=== PATIENT | female | born 1985 | race Hispanic/Latino ===

== ENCOUNTER 2021-01-02 11:30 | Emergency (ER) | payer MEDICAID ==
--- NOTE | 2021-01-02 12:25 | Emergency Department Report ---
ED General Adult HPI - General Chief complaint: Head Injury Stated complaint: CHEMO TX/PAIN/FELL IN BATHROOM Time Seen by Provider: 01/02/21 12:12 Source: patient Mode of arrival: Ambulatory Limitations: No Limitations - History of Present Illness Initial comments: Patient is a 35-year-old female brought in by her family members with complaints of fatigue and generalized weakness since yesterday. The relative states that she just wanted to sleep all day yesterday and she was difficult to awake at times. The patient's relative states that she just started a new chemotherapy regimen on 12/30/2020. She has a history of metastatic breast cancer and sees Dr. Savage in [facility]. She states it has spread to her liver and brain. The relative states that today she was in the shower and fell and hit her head. She states since then she has been more fatigued. The patient states that she has had a couple episodes of vomiting. Patient states that she also has abdominal pain and abdominal swelling and pain with taking a deep breath. She d enies any shortness of breath, fever, cough, chest pain. No allergies to medications. she has a hx of anemia requiring blood transfusions. - Related Data Previous Rx's Medication Instructions Recorded Last Taken Type LORazepam [Ativan] 1 mg PO QHS #14 tab 01/02/21 Unknown Rx Morphine [Morphine ORAL SOLN 10 10 mg PO Q4HR #30 ml 01/02/21 Unknown Rx MG/5 ML] Allergies Allergy/AdvReac Type Severity Reaction Status Date / Time No Known Allergies Allergy Unverified 01/02/21 12:05 ED Review of Systems ROS: Stated complaint: CHEMO TX/PAIN/FELL IN BATHROOM Other details as noted in HPI Comment: All other systems reviewed and negative ED Past Medical Hx - Past Medical History Previous Medical History?: No - Surgical History Past Surgical History?: No - Medications Home Medications: Home Medications Medication Instructions Recorded Confirmed Last Taken Type LORazepam [Ativan] 1 mg PO QHS #14 tab 01/02/21 Unknown Rx Morphine [Morphine ORAL SOLN 10 10 mg PO Q4HR #30 ml 01/02/21 Unknown Rx MG/5 ML] ED Physical Exam - General Limitations: No Limitations General appearance: other (appears fatigued but is able to awaken and answer questions ) - Head Head exam: Present: atraumatic, normocephalic - Eye Eye exam: Present: PERRL, EOMI - ENT ENT exam: Present: mucous membranes moist - Neck Neck exam: Present: normal inspection, full ROM. Absent: tenderness, meningismus - Respiratory Respiratory exam: Present: normal lung sounds bilaterally, other (right chest wall port appears clean, dry, intact without signs of infection). Absent: respiratory distress, wheezes, rales, rhonchi, stridor, chest wall tenderness, accessory muscle use, decreased breath sounds, prolonged expiratory - Cardiovascular Cardiovascular Exam: Present: normal rhythm, tachycardia - GI/Abdominal GI/Abdominal exam: Present: distended (mildly), tenderness (generalized), normal bowel sounds. Absent: guarding, rebound, rigid - Neurological Exam Neurological exam: Present: alert, oriented X3 - Psychiatric Psychiatric exam: Present: normal affect, normal mood - Skin Skin exam: Present: warm, dry, intact ED Course Vital Signs 01/02/21 01/02/21 01/02/21 12:05 12:51 14:26 Temperature 97.6 F Pulse Rate 110 H 105 H Respiratory 16 16 18 Rate Blood Pressure 121/90 Blood Pressure 120/89 [Left] O2 Sat by Pulse 96 100 97 Oximetry 01/02/21 20:47 Temperature Pulse Rate 105 H Respiratory 14 Rate Blood Pressure Blood Pressure 102/66 [Left] O2 Sat by Pulse 96 Oximetry - Reevaluation(s) Reevaluation #1: 01/02/21 20:28 Nurse asked me if I can reorder patient's morphine as there is only 2 mg of morphine available in the Omni cell, canceled the 4 mg IV and ordered 2 doses of the 2 mg morphine - Consultations Consultation #1: 01/02/21 19:[address] Allan, hospitalist who will accept and resume care of patient. ED Medical Decision Making - Lab Data Result diagrams: 01/02/21 13:09 01/02/21 13:15 Lab Results 01/02/21 01/02/21 01/02/21 Range/Units 13:09 13:09 13:14 WBC 1.8 L* (4.5-11.0) K/mm3 RBC 2.60 L (3.65-5.03) M/mm3 Hgb 6.6 L (10.1-14.3) gm/dl Hct 20.9 L (30.3-42.9) % MCV 80 (79-97) fl MCH 26 L (28-32) pg MCHC 32 (30-34) % RDW 21.1 H (13.2-15.2) % Plt Count 42 L (140-440) K/mm3 Add Manual Diff Complete Total Counted 100 Band Neutrophils % 1.0 % Reactive Lymphs % (Man) 1.0 % Monocytes % (Manual) 1.0 (0.0-7.3) % Nucleated RBC % Not Reportable Seg Neutrophils # Man 1.7 L (1.8-7.7) K/mm3 Band Neutrophils # 0.0 K/mm3 Lymphocytes # (Manual) 0.0 L (1.2-5.4) K/mm3 Abs React Lymphs (Man) 0.0 K/mm3 Monocytes # (Manual) 0.0 (0.0-0.8) K/mm3 Eosinophils # (Manual) 0.0 (0.0-0.4) K/mm3 Basophils # (Manual) 0.0 (0.0-0.1) K/mm3 Metamyelocytes # 0.0 K/mm3 Myelocytes # 0.0 K/mm3 Promyelocytes # 0.0 K/mm3 Blast Cells # 0.0 K/mm3 WBC Morphology Not Reportable Hypersegmented Neuts Not Reportable Hyposegmented Neuts Not Reportable Hypogranular Neuts Not Reportable Smudge Cells Not Reportable Toxic Granulation Not Reportable Toxic Vacuolation Not Reportable Dohle Bodies Not Reportable Pelger-Huet Anomaly Not Reportable Roxanna Rods Not Reportable Platelet Estimate Consistent w auto Clumped Platelets Not Reportable Plt Clumps, EDTA Not Reportable Large Platelets Not Reportable Giant Platelets Not Reportable Platelet Satelliting Not Reportable Plt Morphology Comment Not Reportable RBC Morphology Not Reportable Dimorphic RBCs Not Reportable Polychromasia Not Reportable Hypochromasia Not Reportable Poikilocytosis Not Reportable Anisocytosis Not Reportable Microcytosis Not Reportable Macrocytosis Not Reportable Spherocytes Not Reportable Pappenheimer Bodies Not Reportable Sickle Cells Not Reportable Target Cells Not Reportable Tear Drop Cells Not Reportable Ovalocytes Not Reportable Helmet Cells Not Reportable [place] Bodies Not Reportable [place] Rings Not Reportable [place] Cells Not Reportable Bite Cells Not Reportable Crenated Cell Not Reportable Elliptocytes Not Reportable Acanthocytes (Spur) Not Reportable Rouleaux Not Reportable Hemoglobin C Crystals Not Reportable Schistocytes Not Reportable Malaria parasites Not Reportable Rudi Bodies Not Reportable Hem Pathologist Commnt No Sodium (137-145) mmol/L Potassium (3.6-5.0) mmol/L Chloride (98-107) mmol/L Carbon Dioxide (22-30) mmol/L Anion Gap mmol/L BUN (7-17) mg/dL Creatinine (0.6-1.2) mg/dL Estimated GFR ml/min BUN/Creatinine Ratio % Glucose (65-100) mg/dL Calcium (8.4-10.2) mg/dL Magnesium (1.7-2.3) mg/dL Total Bilirubin (0.1-1.2) mg/dL AST (5-40) units/L ALT (7-56) units/L Alkaline Phosphatase (35-129) units/L Total Creatine Kinase (30-135) units/L Troponin T (0.00-0.029) ng/mL Total Protein (6.3-8.2) g/dL Albumin (3.9-5) g/dL Albumin/Globulin Ratio % Lipase (13-60) units/L HCG, Qual Negative (Negative) Blood Type A NEGATIVE Antibody Screen Negative Crossmatch See Detail 01/02/21 01/02/21 Range/Units 13:15 13:15 WBC (4.5-11.0) K/mm3 RBC (3.65-5.03) M/mm3 Hgb (10.1-14.3) gm/dl Hct (30.3-42.9) % MCV (79-97) fl MCH (28-32) pg MCHC (30-34) % RDW (13.2-15.2) % Plt Count (140-440) K/mm3 Add Manual Diff Total Counted Band Neutrophils % % Reactive Lymphs % (Man) % Monocytes % (Manual) (0.0-7.3) % Nucleated RBC % Seg Neutrophils # Man (1.8-7.7) K/mm3 Band Neutrophils # K/mm3 Lymphocytes # (Manual) (1.2-5.4) K/mm3 Abs React Lymphs (Man) K/mm3 Monocytes # (Manual) (0.0-0.8) K/mm3 Eosinophils # (Manual) (0.0-0.4) K/mm3 Basophils # (Manual) (0.0-0.1) K/mm3 Metamyelocytes # K/mm3 Myelocytes # K/mm3 Promyelocytes # K/mm3 Blast Cells # K/mm3 WBC Morphology Hypersegmented Neuts Hyposegmented Neuts Hypogranular Neuts Smudge Cells Toxic Granulation Toxic Vacuolation Dohle Bodies Pelger-Huet Anomaly Roxanna Rods Platelet Estimate Clumped Platelets Plt Clumps, EDTA Large Platelets Giant Platelets Platelet Satelliting Plt Morphology Comment RBC Morphology Dimorphic RBCs Polychromasia Hypochromasia Poikilocytosis Anisocytosis Microcytosis Macrocytosis Spherocytes Pappenheimer Bodies Sickle Cells Target Cells Tear Drop Cells Ovalocytes Helmet Cells [place] Bodies L[place]sen Rings [place] Cells Bite Cells Crenated Cell Elliptocytes Acanthocytes (Spur) Rouleaux Hemoglobin C Crystals Schistocytes Malaria parasites Rudi Bodies Hem Pathologist Commnt Sodium 134 L (137-145) mmol/L Potassium 4.0 (3.6-5.0) mmol/L Chloride 97.8 L (98-107) mmol/L Carbon Dioxide 23 (22-30) mmol/L Anion Gap 17 mmol/L BUN 24 H (7-17) mg/dL Creatinine 0.8 (0.6-1.2) mg/dL Estimated GFR > 60 ml/min BUN/Creatinine Ratio 30 % Glucose 157 H (65-100) mg/dL Calcium 8.0 L (8.4-10.2) mg/dL Magnesium 1.80 (1.7-2.3) mg/dL Total Bilirubin 1.50 H (0.1-1.2) mg/dL AST 98 H (5-40) units/L ALT 18 (7-56) units/L Alkaline Phosphatase 1467 H (35-129) units/L Total Creatine Kinase 55 (30-135) units/L Troponin T < 0.010 (0.00-0.029) ng/mL Total Protein 5.7 L (6.3-8.2) g/dL Albumin 2.5 L (3.9-5) g/dL Albumin/Globulin Ratio 0.8 % Lipase 8 L (13-60) units/L HCG, Qual (Negative) Blood Type Antibody Screen Crossmatch - Radiology Data Radiology results: report reviewed Ordering Physician: LASHAE PEREZ Date of Service: 01/02/21 Procedure(s): XR chest 1V ap Accession Number(s): [id number] cc: LASHAE PEREZ Fluoro Time In Minutes: CHEST 1 VIEW 01/02/2021 2:29 PM INDICATION / CLINICAL INFORMATION: weakness. COMPARISON: None available. FINDINGS: SUPPORT DEVICES: Right IJ port in position. HEART / MEDIASTINUM: No significant abnormality. LUNGS / PLEURA: There are diffuse bilateral pulmonary nodules. No pneumothorax. ADDITIONAL FINDINGS: No significant additional findings. IMPRESSION: 1. Diffuse bilateral pulmonary nodules most likely reflecting metastatic disease. Signer Name: Salbador Kitchen MD Signed: 01/02/2021 3:30 PM Workstation Name: [id number] Transcribed By: GERBER Dictated By: Salbador Kitchen MD Electronically Authenticated By: Salbador Kitchen MD Signed Date/Time: 01/02/21 153 DD/ 1530 TD/TT: Ordering Physician: LASHAE PEREZ Date of Service: 01/02/21 Procedure(s): CT head/brain wo con Accession Number(s): [id number] cc: LASHAE PEREZ NONENHANCED CT SCAN OF THE HEAD: INDICATION / CLINICAL INFORMATION: 35 years Female; fell, hit head, hx of mets breast cancer. TECHNIQUE: Routine CT head without contrast. All CT scans at this location are performed using CT dose reduction for ALARA by means of automated exposure control. COMPARISON: None. FINDINGS: BRAIN / INTRACRANIAL CONTENTS: No intracranial sequela from the trauma; minimal scalp swelling in the left supraorbital region; no air-fluid level in the visualized portions of the paranasal sinuses Right frontal and left occipital craniotomy changes with encephalomalacia. No acute hemorrhage, mass effect, midline shift, hydrocephalus, or acute, large territorial infarct. Chronic changes in the left precentral gyrus extending towards centrum semiovale and in the left frontal lobe white matter; chronic changes in the tommy Craniovertebral junction: No significant abnormality. ORBITS: No significant abnormality of visualized orbits. SINUSES / MASTOIDS: No significant abnormality of the visualized paranasal sinuses or mastoid air cells. ADDITIONAL FINDINGS: None. IMPRESSION: No space taking lesion in the brain Craniotomy changes in the right frontal and right occipital region with adjacent encephalomalacia Chronic changes in the left precentral gyrus and in the left frontal lobe white matter Signer Name: Judy Tapia MD Signed: 01/02/2021 1:09 PM Workstation Name: [id number] Transcribed By: BS Dictated By: Judy Ramos MD Electronically Authenticated By: Judy Ramos MD Signed Date/Time: 01/02/21 130 DD/ 1305 TD/TT: Ordering Physician: LASHAE PEREZ Date of Service: 01/02/21 Procedure(s): CT angio chest Accession Number(s): [id number] cc: LASHAE PEREZ CTA CHEST WITH CONTRAST INDICATION / CLINICAL INFORMATION: pleuritic pain, tachycardia, hx of cancer on chemo 100 ml omni . TECHNIQUE: Axial CT images were obtained through the chest after injection of 100 mL's of Omnipaque 300 IV contrast. 3 plane MIP and/or 3D reconstructions were produced. All CT scans at this location are performed using CT dose reduction for ALARA by means of automated exposure control. COMPARISON: None available. FINDINGS: PULMONARY ARTERIES: No pulmonary emboli. THORACIC AORTA: No significant abnormality. HEART: No significant abnormality. CORONARY ARTERY CALCIFICATION: None. MEDIASTINUM / DEEPTI: No significant abnormality. PLEURA: No pleural effusion. No pneumothorax. LUNGS: No acute air space or interstitial disease. There is diffuse pulmonary metastases. ADDITIONAL FINDINGS: Status post left mastectomy. SKELETAL STRUCTURES: No significant osseous abnormality. IMPRESSION: 1. No CT evidence for pulmonary embolism. 2. No acute findings. 3. Diffuse pulmonary metastases. CT ABDOMEN AND PELVIS WITH CONTRAST INDICATION / CLINICAL INFORMATION: pleuritic pain, tachycardia, hx of cancer on chemo 100 ml omni . TECHNIQUE: Axial CT images were obtained through the abdomen and pelvis after 100 cc of Omnipaque [address] scans at this location are performed using CT dose reduction for ALARA by means of automated exposure control. COMPARISON: None available. FINDINGS: AORTA / ARTERIES: No significant abnormality. IVC / VEINS: No significant abnormality. LYMPH NODES: No significant adenopathy. COLON: No significant abnormality. APPENDIX: Not visualized. STOMACH / SMALL BOWEL: No significant abnormality. PERITONEUM: Mild intra-abdominal ascites. No free air. No fluid collection. LIVER: Diffuse metastatic disease. GALLBLADDER: Pericholecystic fluid, which may be the intra-abdominal ascites. BILE DUCTS: No significant abnormality. PANCREAS: There is a hypoattenuating lesion within the pancreatic tail measuring up to 1.5 cm, given the other metastatic disease this most likely represents an additional metastatic focus. SPLEEN: There is a hypoattenuating lesion within the medial aspect of the spleen measuring up to 1.9 cm, given the other metastatic disease this most likely represents an additional metastatic focus. ADRENALS: No significant abnormality. RIGHT KIDNEY / URETER: There is a 4.7 cm mass as well as other smaller masses within the right kidney, likely representing metastatic foci. There is severe right hydronephrosis with delayed nephrogram. This is cause secondary to unknown etiology. LEFT KIDNEY / URETER: There is a 2.8 cm mass as well as other smaller masses within the left kidney, likely metastatic disease. No hydronephrosis. URINARY BLADDER: No significant abnormality. REPRODUCTIVE ORGANS: There is an endometrial mass, likely an additional metastatic focus. SKELETAL SYSTEM: There is a pathologic fracture of the left anterolateral body of the L4 vertebral body. There is sclerotic metastatic disease noted within the lumbar spine. ADDITIONAL FINDINGS: None. IMPRESSION: 1. There is diffuse metastatic disease as detailed above. 2. There is severe right hydronephrosis of unknown etiology. There is also a delayed right nephrogram consistent with nephropathy of unknown etiology. 3. There is a pathologic fracture of the left anterolateral body of the L4 vertebral body. 4. Intra-abdominal ascites. Signer Name: Hawa Thompson DO Signed: 01/02/2021 7:19 PM Workstation Name: [id number] Transcribed By: GERA Dictated By: HAWA THOMPSON DO Electronically Authenticated By: HAWA THOMPSON DO Signed Date/Time: 01/02/211918 DD/ 11 TD/TT: - Medical Decision Making Patient is a 35-year-old female brought in by her family members with complaints of fatigue and generalized weakness since yesterday. The relative states that she just wanted to sleep all day yesterday and she was difficult to awake at times. The patient's relative states that she just started a new chemotherapy regimen on 12/30/2020. She has a history of metastatic breast cancer and sees Dr. Savage in [facility]. She states it has spread to her liver and brain. The relative states that today she was in the shower and fell and hit her head. She states since then she has been more fatigued. The patient states that she has had a couple episodes of vomiting. Patient states that she also has abdominal pain and abdominal swelling and pain with taking a deep breath. She denies any shortness of breath, fever, cough, chest pain. No allergies to medications. she has a hx of anemia requiring blood transfusions. Vitals with tachycardia, otherwise stable. Patient had outpatient lab work performed on and at that time her white blood cell count was 4 and her hemoglobin was 7.4. Labs significant today for white blood cell count 1.8 and hemoglobin of 6.6. Discussed with Dr. Andrew Wilkins, ER attending who recommended transfusion, ordered for 1 unit. Chest x-ray 1. Diffuse bilateral pulmonary nodules most likely reflecting metastatic disease. Due to the history of cancer on chemotherapy with pleuritic pain and tachycardia, CTA ordered to rule out PE. CT angio chest 1. No CT evidence for pulmonary embolism. 2. No acute findings. 3. Diffuse pulmonary metastases. Due to abdominal pain and abdominal distention, CT abdomen pelvis with IV contrast ordered and shows 1. There is diffuse metastatic disease as detailed above. 2. There is severe right hydronephrosis of unknown etiology. There is also a delayed right nephrogram consistent with nephropathy of unknown etiology. 3. There is a pathologic fracture of the left anterolateral body of the L4 vertebral body. 4. Intra-abdominal ascites. Due to the fall with minor head trauma and confusion CT head ordered and shows No space taking lesion in the brain Craniotomy changes in the right frontal and right occipital region with adjacent encephalomalacia Chronic changes in the left precentral gyrus and in the left frontal lobe white matter. Case discussed with Dr. Andrew Wilkins, ER attending who recommended admission. spoke to Dr. Allan, hospitalist who will accept and resume care of patient. Critical care attestation.: If time is entered above; I have spent that time in minutes in the direct care of this critically ill patient, excluding procedure time. ED Disposition Clinical Impression: Metastatic breast cancer, Metabolic encephalopathy, Anemia of chronic disease, Pancytopenia Minor head injury Qualifiers: Encounter type: initial encounter Qualified Code(s): S09.90XA - Unspecified injury of head, initial encounter Disposition: 02 SHORT TERM HOSPITAL Is pt being admited?: Yes Does the pt Need Aspirin: No Condition: Stable Prescriptions: LORazepam [Ativan] 1 mg PO QHS #14 tab Morphine [Morphine ORAL SOLN 10 MG/5 ML] 10 mg PO Q4HR #30 ml Referrals: PATY LEARY MD [Primary Care Provider] - 3-5 Days
--- NOTE | 2021-01-02 13:13 | Cat Scan Report ---
NONENHANCED CT SCAN OF THE HEAD: INDICATION / CLINICAL INFORMATION: 35 years Female; fell, hit head, hx of mets breast cancer. TECHNIQUE: Routine CT head without contrast. All CT scans at this location are performed using CT dos e reduction for ALARA by means of automated exposure control. COMPARISON: None. FINDINGS: BRAIN / INTRACRANIAL CONTENTS: No intracranial sequela from the trauma; minimal scalp swelling in the left supraorbital region; no air-fluid level in the visualized portions of the paranasal sinuses Right frontal and left occipital craniotomy changes with encephalomalacia. No acute hemorrhage, mass effect, midline shift, hydrocephalus, or acute, large territorial infarct. Chronic changes in the le ft precentral gyrus extending towards centrum semiovale and in the left frontal lobe white matter; ch ronic changes in the tommy Craniovertebral junction: No significant abnormality. ORBITS: No significant abnormality of visualized orbits. SINUSES / MASTOIDS: No significant abnormality of the visualized paranasal sinuses or mastoid air daiana ls. ADDITIONAL FINDINGS: None. IMPRESSION: No space taking lesion in the brain Craniotomy changes in the right frontal and right occipital region with adjacent encephalomalacia Chronic changes in the left precentral gyrus and in the left frontal lobe white matter Signer Name: Judy Tapia MD Signed: 01/02/2021 1:09 PM Workstation Name: [id number]
[2021-01-02 13:31] LABS: Hematocrit 20.9 % (30.3-42.9); Hemoglobin 6.6 gm/dl (10.1-14.3); Mean Corpuscular HGB Conc 32 % (30-34); Mean Corpuscular Volume 80 fl (79-97)
[2021-01-02 14:04] LABS: Alanine Aminotransferase 18 units/L (7-56); Albumin 2.5 g/dL (3.9-5); BUN/Creatinine Ratio 30; Blood Urea Nitrogen 24 mg/dL (7-17); Hemolysis Index 2
[2021-01-02] MEDS ORDERED: CALCIUM CARBONATE 500 MG TAB CHEW PO ONE (14:44)
[2021-01-02] MEDS ORDERED: SODIUM CHLORIDE 0.9% 1000 ML 1,000 ML IV ONE (14:45)
[2021-01-02 14:52] LABS: Red Cell Distribution Width 21.1 % (13.2-15.2)
--- NOTE | 2021-01-02 15:35 | XRay Report ---
CHEST 1 VIEW 01/02/2021 2:29 PM INDICATION / CLINICAL INFORMATION: weakness. COMPARISON: None available. FINDINGS: SUPPORT DEVICES: Right IJ port in position. HEART / MEDIASTINUM: No significant abnormality. LUNGS / PLEURA: There are diffuse bilateral pulmonary nodules. No pneumothorax. ADDITIONAL FINDINGS: No significant additional findings. IMPRESSION: 1. Diffuse bilateral pulmonary nodules most likely reflecting metastatic disease. Signer Name: Salbador Kitchen MD Signed: 01/02/2021 3:30 PM Workstation Name: [id number]
[2021-01-02] MEDS ORDERED: SODIUM CHLORIDE 0.9% 500 ML 500 ML IV ONE (16:50)
[2021-01-02 17:13] LABS: Platelet Count 42 K/mm3 (140-440)
[2021-01-02] MEDS ORDERED: MORPHINE 4 MG/1 ML INJ IV ONE (17:17)
[2021-01-02 17:22] LABS: Total Cells Counted 100
[2021-01-02 17:23] LABS: Platelet Estimate Consistent w Auto
--- NOTE | 2021-01-02 19:23 | Cat Scan Report ---
CTA CHEST WITH CONTRAST INDICATION / CLINICAL INFORMATION: pleuritic pain, tachycardia, hx of cancer on chemo 100 ml omni . TECHNIQUE: Axial CT images were obtained through the chest after injection of 100 mL's of Omnipaque 3 00 IV contrast. 3 plane MIP and/or 3D reconstructions were produced. All CT scans at this location ar e performed using CT dose reduction for ALARA by means of automated exposure control. COMPARISON: None available. FINDINGS: PULMONARY ARTERIES: No pulmonary emboli. THORACIC AORTA: No significant abnormality. HEART: No significant abnormality. CORONARY ARTERY CALCIFICATION: None. MEDIASTINUM / DEEPTI: No significant abnormality. PLEURA: No pleural effusion. No pneumothorax. LUNGS: No acute air space or interstitial disease. There is diffuse pulmonary metastases. ADDITIONAL FINDINGS: Status post left mastectomy. SKELETAL STRUCTURES: No significant osseous abnormality. IMPRESSION: 1. No CT evidence for pulmonary embolism. 2. No acute findings. 3. Diffuse pulmonary metastases. CT ABDOMEN AND PELVIS WITH CONTRAST INDICATION / CLINICAL INFORMATION: pleuritic pain, tachycardia, hx of cancer on chemo 100 ml omni . TECHNIQUE: Axial CT images were obtained through the abdomen and pelvis after 100 cc of Omnipaque [address] scans at this location are performed using CT dose reduction for ALARA by means of automated exposure control. COMPARISON: None available. FINDINGS: AORTA / ARTERIES: No significant abnormality. IVC / VEINS: No significant abnormality. LYMPH NODES: No significant adenopathy. COLON: No significant abnormality. APPENDIX: Not visualized. STOMACH / SMALL BOWEL: No significant abnormality. PERITONEUM: Mild intra-abdominal ascites. No free air. No fluid collection. LIVER: Diffuse metastatic disease. GALLBLADDER: Pericholecystic fluid, which may be the intra-abdominal ascites. BILE DUCTS: No significant abnormality. PANCREAS: There is a hypoattenuating lesion within the pancreatic tail measuring up to 1.5 cm, given the other metastatic disease this most likely represents an additional metastatic focus. SPLEEN: There is a hypoattenuating lesion within the medial aspect of the spleen measuring up to 1.9 cm, given the other metastatic disease this most likely represents an additional metastatic focus. ADRENALS: No significant abnormality. RIGHT KIDNEY / URETER: There is a 4.7 cm mass as well as other smaller masses within the right kidney , likely representing metastatic foci. There is severe right hydronephrosis with delayed nephrogram. This is cause secondary to unknown etiology. LEFT KIDNEY / URETER: There is a 2.8 cm mass as well as other smaller masses within the left kidney, likely metastatic disease. No hydronephrosis. URINARY BLADDER: No significant abnormality. REPRODUCTIVE ORGANS: There is an endometrial mass, likely an additional metastatic focus. SKELETAL SYSTEM: There is a pathologic fracture of the left anterolateral body of the L4 vertebral lavon dy. There is sclerotic metastatic disease noted within the lumbar spine. ADDITIONAL FINDINGS: None. IMPRESSION: 1. There is diffuse metastatic disease as detailed above. 2. There is severe right hydronephrosis of unknown etiology. There is also a delayed right nephrogram consistent with nephropathy of unknown etiology. 3. There is a pathologic fracture of the left anterolateral body of the L4 vertebral body. 4. Intra-abdominal ascites. Signer Name: Joss Moulton DO Signed: 01/02/2021 7:19 PM Workstation Name: [id number]
--- NOTE | 2021-01-02 19:50 | History and Physical Report ---
History of Present Illness Chief complaint: She has gotten weaker History of present illness: 35 YO Female with Breast Cancer, Stage 4 with metastatic disease to the spine, chest cavity, and abdominal cavity presents to ED for evaluation. Patient is stuporous at the time my evaluation is unable to provide history. Patient history taken from EMS staff as well as the patient's brother who was made available by telephone for interview. As per brother the patient has experienced increased weakness, diminished oral intake, and increased confusion over the past 3 weeks with persistent and worsening symptoms over the same timeframe. Patient is currently bedbound, nonambulatory and requires 6/6 assistance with activities of daily living. Patient is incontinent of bowel and bladder. Patient brother reports "she cannot do anything for herself anymore". Patient transported to [facility] for further care and evaluation of the aforementioned symptoms. The patient was seen and evaluated in the emergency department. All lab and imaging studies reviewed. Patient found to have breast cancer with metastatic disease, metabolic encephalopathy, anemia of chronic disease, malnutrition. Patient found to have poor prognosis. Advanced care planning conducted in ED. patient prognosis discussed with patient brother and medical decision maker David Torres. Patient brother informed of patient poor prognosis. Patient probably elects to have patient discharged home with home hospice care. No prior admission for review. No medication listed at time of admission reconciliation. Past History Past Medical History: cancer, other (See HPI) Past Surgical History: No surgical history, Other (Reviewed) Social history: single, lives with family. denies: smoking, alcohol abuse, prescription drug abuse Family history: hypertension Medications and Allergies Allergies Allergy/AdvReac Type Severity Reaction Status Date / Time No Known Allergies Allergy Unverified 01/02/21 12:05 Review of Systems ROS unobtainable: due to mental status Exam - Constitutional Vitals: Temp Pulse Resp BP Pulse Ox 97.6 F 105 H 18 120/89 97 01/02/21 12:05 01/02/21 14:26 01/02/21 14:26 01/02/21 14:26 01/02/21 14:26 General appearance: Present: mild distress - EENT Eyes: Present: PERRL ENT: hearing decreased - Neck Neck: Present: supple, normal ROM - Respiratory Respiratory: bilateral: diminished - Cardiovascular Heart Sounds: Present: S1 & S2. Absent: rub, click - Extremities Extremity abnormal: edema Peripheral Pulses: within normal limits - Abdominal General gastrointestinal: Present: soft, distended, normal bowel sounds - Integumentary Integumentary: Present: clear, dry, clammy, decreased turgor - Musculoskeletal Musculoskeletal: generalized weakness - Psychiatric Psychiatric: no appropriate mood/affect, no intact judgment & insight, no memory intact - Neurologic Neurologic: CNII-XII intact, no focal deficits, moves all extremities, no gait normal HEART Score - HEART Score Troponin: Troponin T < 0.010 ng/mL (0.00-0.029) 01/02/21 13:15 Results - Labs CBC & Chem 7: 01/02/21 13:09 01/02/21 13:15 Labs: Abnormal lab results 01/02/21 01/02/21 01/02/21 Range/Units 13:09 13:14 13:15 WBC 1.8 L* (4.5-11.0) K/mm3 RBC 2.60 L (3.65-5.03) M/mm3 Hgb 6.6 L (10.1-14.3) gm/dl Hct 20.9 L (30.3-42.9) % MCH 26 L (28-32) pg RDW 21.1 H (13.2-15.2) % Plt Count 42 L (140-440) K/mm3 Seg Neutrophils # Man 1.7 L (1.8-7.7) K/mm3 Lymphocytes # (Manual) 0.0 L (1.2-5.4) K/mm3 Sodium 134 L (137-145) mmol/L Chloride 97.8 L (98-107) mmol/L BUN 24 H (7-17) mg/dL Glucose 157 H (65-100) mg/dL Calcium 8.0 L (8.4-10.2) mg/dL Total Bilirubin 1.50 H (0.1-1.2) mg/dL AST 98 H (5-40) units/L Alkaline Phosphatase 1467 H (35-129) units/L Total Protein 5.7 L (6.3-8.2) g/dL Albumin 2.5 L (3.9-5) g/dL Lipase 8 L (13-60) units/L Crossmatch See Detail Assessment and Plan - Patient Problems (1) Metastatic breast cancer Current Visit: Yes Status: Acute Plan to address problem: Patient found to have poor prognosis with stage IV metastatic disease. Patient medical decision maker elects to initiate comfort care measures and make patient DNR. Request discharge home with home hospice care. Home hospice care team not ified. Patient discharged home to home hospice care under the care of the biomedical engineering supervisor. (2) Metabolic encephalopathy Current Visit: Yes Status: Acute Plan to address problem: Comfort care measures, diet as tolerated. (3) Anemia of chronic disease Current Visit: Yes Status: Acute Plan to address problem: Supportive care. Comfort care measures (4) Debility Current Visit: Yes Status: Acute Plan to address problem: Supportive care, (5) Advance care planning Current Visit: Yes Status: Acute Plan to address problem: Disease education conducted, care plan discussed, diagnoses discussed, prognosis discussed. Patient brother aDvid Torres [phone] informed of patient prognosis. Patient brother acknowledges understanding prognosis. Patient brother elects to make patient DNR and to initiate comfort care measures and enrolled in home hospice care. Home hospice care team notified and home hospice care arranged. +35 minutes.
[2021-01-02] MEDS ORDERED: SODIUM CHLORIDE 0.9% 500 ML 500 ML ONE (20:22)
[2021-01-02] MEDS ORDERED: MORPHINE 2 MG/1 ML INJ IV ONE ×2 (20:27)
[2021-01-02 20:48] VITALS: BP 102/66
[2021-01-02] MEDS ORDERED: HYDROmorphone 1 MG/1 ML INJ IV PRN (21:07)
== END 2021-01-02 21:30 | disposition short-term general hospital (02) ==
LOC: ED 11:30
DX: S09.90XA Unspecified injury of head, initial encounter (principal); C80.1 Malignant (primary) neoplasm, unspecified; C79.81 Secondary malignant neoplasm of breast; G93.41 Metabolic encephalopathy; D53.9 Nutritional anemia, unspecified; D61.818 Other pancytopenia; R53.83 Other fatigue; R53.1 Weakness; R11.10 Vomiting, unspecified; W18.30XA Fall on same level, unspecified, initial encounter; Y93.E1 Activity, personal bathing and showering; Y92.89 Other specified places as the place of occurrence of the external cause; Y99.8 Other external cause status
CPT/HCPCS: 36415; 70450; 71045; 71275; 74177; 80053; 82550; 83690; 83735; 84484; 84703; 85007; 85025; 86850; 86900; 86901; 86920; 96374; 96375; 99284; J1170; J2270; J7040; Q9967